=== PATIENT | male | born 1990 | race Caucasian/White ===

== ENCOUNTER 2020-07-21 14:40 | Emergency (ER) | payer SELFPAY ==
[~2020-07-21] VITALS: Ht 175.3 cm; Wt 77.1 kg
--- NOTE | 2020-07-21 14:40 | NUR ---
BIB [facility] with c/o Fentanyl overdose. Pt was given Narcan in the field by EMS, pt arrives alert and oriented x 4 with no distress noted.
--- NOTE | 2020-07-21 14:50 | NUR ---
REBEKAH at bedside speaking with pt.
--- NOTE | 2020-07-21 14:53 | NUR ---
Pt c/o nausea, medicated with Zofran ODT as ordered.
[2020-07-21] MEDS ORDERED: ONDANSETRON ODT 4 MG TAB.RAPDIS ONE (14:58)
--- NOTE | 2020-07-21 14:58 | NUR ---
Patient discharged to home in stable condition. Written and verbal after care instructions given. Patient verbalizes understanding of instructions. Stressed follow up or return to ER for worsening s/s.
--- NOTE | 2020-07-21 14:58 | NUR ---
IV removed. Catheter intact and site benign. Pressure and 4x4 gauze applied to site. No bleeding noted.
[2020-07-21 14:59] VITALS: BP 134/75
[2020-07-21] MEDS ORDERED: ONDANSETRON ODT 4 MG TAB.RAPDIS SL ONE (15:00)
== END 2020-07-21 14:59 | disposition home or self-care (01) ==
LOC: ER 14:40
DX: T40.411A Poisoning by fentanyl or fentanyl analogs, accidental (unintentional), initial encounter (principal); R40.4 Transient alteration of awareness; Y92.480 Sidewalk as the place of occurrence of the external cause; F90.9 Attention-deficit hyperactivity disorder, unspecified type
CPT/HCPCS: A4663; Q0162